=== PATIENT | male | born 1945 | race Caucasian/White ===

== ENCOUNTER → 2016-12-08 | Outpatient (CLI) | payer MEDICARE, OTHER ==
[~2016-12-08] MED LIST: AMOX875T2 PO; BACT800T5 PO; CARA1TAB6 PO; CARV6.25 PO; CETI1TAB39 PO; COLA100C3 PO; DIFL100T PO; FLUT1SPR5 EACH NARE; IPRAAER INH; KPHOS250 PO; LIPI10TA PO; LISI10TA3 PO; LOMO2.5T PO; MAGN400T2 PO; MULT-135 PO; MYCO250 PO; NEXI40CA PO; NITR0.2D T-DERMAL; OMEG12002 PO; PRED5TAB PO; REPA1 PO; SYMB160A INH; TACR1 PO; TUMS500C PO; VALG450 PO; VITA10002 PO; VITA400C2 PO
== END ==
LOC: CLAB 08:40
DX: D72.819 Decreased white blood cell count, unspecified (principal); B25.9 Cytomegaloviral disease, unspecified
CPT/HCPCS: 87496